=== PATIENT | male | born 2000 | race Caucasian/White ===

== ENCOUNTER 2021-08-12 07:56 | Day surgery (SDC) | payer OTHER ==
[~2021-08-12] VITALS: Ht 175.3 cm; Wt 66.0 kg
--- NOTE | 2021-08-12 07:55 | NUR ---
PATIENT TO ROOMAMBULATORY WITH STEADY GAIT WITH ANR STAFF. PATIENT IS ALERT AND ORIENTED X3. ADMISSION ASSESSMENT COMPLETED AT THIS TIME. IV ESTABLISHED. LABS OBTAINED AND SENT FOR REFERENCE. ORIENTED PATIENT TO ROOM AND UNIT. CALL LIGHT IN REACH. WILL CONTINUE TO MONITOR.
[2021-08-12 08:00] VITALS: BP 127/79
[2021-08-12 09:34] LABS: HEMATOCRIT 42.2 % (39.0-50.0); HEMOGLOBIN 14.4 g/dl (14.0-18.0); IMMATURE GRANULOCYTES 0.1 % (0.0-5.0); MEAN CELL VOLUME 84.7 fL CALC (80.0-100.0); MEAN CORPUSCULAR HGB 28.9 pG CALC (26.0-32.0); MEAN CORPUSCULAR HGB CONC 34.1 g/dL CAL (32.0-36.0); NEUT# 3.7 thou/uL (1.82-7.42); RED BLOOD COUNT 4.98 mill/uL (4.70-6.10); RED CELL DISTRI WIDTH 12.3 % (11.5-15.5)
[2021-08-12 09:50] LABS: ALBUMIN 4.4 g/dL (3.2-5.0); ALKALINE PHOSPHATASE 99 u/l (38-126); ANION GAP 15 (6-22 (CALC)); BILIRUBIN, TOTAL 0.7 mg/dL (0.0-1.4); BUN 8 mg/dL (9-20); BUN/CREATININE RATIO 12 (12-20 (CALC)); CARBON DIOXIDE 28 mmol/l (22-30); CHLORIDE 100 mmol/l (95-108); CREATININE 0.7 mg/dL (0.7-1.3); GFR > 60 ML/MIN (>=60 (CALC)); GFR FOR AFR.AMER. > 60 ML/MIN (>=60 (CALC)); SGOT/AST 28 u/l (17-59); SODIUM 139 mmol/l (137-146); TOTAL PROTEIN 8.3 g/dL (6.3-8.2)
--- NOTE | 2021-08-12 10:18 | NUR ---
DR VAZQUEZ AT BEDSIDE AT THIS TIME.
[2021-08-12 10:57] VITALS: BP 97/71
--- NOTE | 2021-08-12 11:30 | NUR ---
patient to anr procedure via bed at this time.
[2021-08-12] MEDS ORDERED: KLONOPIN0.5 MG PO (13:52)
[2021-08-12] MEDS ORDERED: NALTREXONE50 MG PO (13:52)
[2021-08-12] MEDS ORDERED: CLONIDINE0.1 MG PO (13:52)
--- NOTE | 2021-08-12 17:05 | NUR ---
PT ARRIVED TO THE FLOOR AT THIS TIME WITH THE ASSISTANCE OF TWP PERSON STAFF FROM PROCEDURE ROOM. VS OBTAINED AND ARE STABLE. BED ALARM APPLIED, PT REMAINS DROWSY FROM PROCEDURE. BEAR HUGGER APPLIED, PT STATES "OH SHIT THATS' COLD." PT RE-ASSURED THAT WARM AIR WILL FOLLOW. IV FLUIDS INFUSING THRU PATENT IV SITE OF LH. PT ABLE TO COMMUNICATE SMALL ITEMS APPROPRIATELY. WILL CONTINUE TO MONITOR.
[2021-08-12 17:22] VITALS: BP 107/68
--- NOTE | 2021-08-12 20:21 | NUR ---
ASSESSMENT COMPLETED, SEE DOCUMENTATION. PT C/O OF RESTLESSNESS, ANXIETY, GOOSEBUMPS, AND SWEATING. MEDICATIONED WITH 2MG OF ATIVAN. PT TOLERATED WELL. WILL CONTINUE TO MONITOR
[2021-08-12 23:07] VITALS: BP 137/67
--- NOTE | 2021-08-13 00:01 | NUR ---
PT RESTING QUIETLY IN BED. ABLE TO UTILIZE THE URINAL WITHOUT ASSISTANCE. BM APPROXIMATLY 2 HOURS AGO. PT HAS BEEN ABLE TO GO TO THE BATHROOM WITH MINIMAL ASSISTANCE. PT TAKING PO FLUIDS, NO C/O OF NAUSEA OR VOMMITING. SAFETY PRECAUTIONS REMAIN IN PLCE. BEAR HUGGER APPLID OVER PT DURING DAY, PT INDICATE HE WOULD LIKE TO KEEP BEAR HUGGER IN PLACE FOR THE DURATION OF STAY. WILL CONTINUE TO MONITOR
--- NOTE | 2021-08-13 02:18 | NUR ---
pt requested juice, apple juice provided with a small cup of ice. advised pt on the importance of sipping fluids and not overdoing it to decrease risk for nausea/vommiting. will monitor
--- NOTE | 2021-08-13 03:19 | NUR ---
PT AWAKE AT THIS TIME, REPORTING DIFFICULTY SLEEPING, NO S/S OF RESTLESSNESS/ANXIETY/WITHDRAWL SYMPTOMS. PT REQUESTED SOMETHING TO EAT, PROVIDED PT WITH JELLO. TAOLERATED WELL. PT HAS BEEN TAKING IN PO FLUIDS THROUGHOUT THE SHIFT, NO NAUSEA/VOMMITTING REPORTED. PT IS TOLERATING WELL. SAFETY PRECAUTIONS REMAIN IN PLACE, WILL MONITOR
[2021-08-13 03:45] VITALS: BP 111/57
--- NOTE | 2021-08-13 04:00 | NUR ---
PT RESTING QUITLY AT THIS TIME, NO COMPLAINTS VOICED, NO S/S OF DISTRESS NOTED. MINIMAL S/S OF WITHDRAWL NOTED, GOOSEFLESH, MINIMAL RESTLESSNESS. PT DOES C/O INSOMNIA, PT DENIES THAT THE INSOMINA IS MAKING HIM ANXIOUS. UPON OBSERVATION NOTED THAT PT IS RESTING AND THE REAWAKENING TO MINimal NOISE. PT CONTINUES TO TOLERATE FLUIDS BY MOUTH, ALL ORDERED MEDS ADMINSTERED. SAFETY PRECAUTIONS REMAIN IN PLACE, CALL LIGHT REMAIN WITHIN REACH
[2021-08-13 06:10] LABS: HEMATOCRIT 43.6 % (39.0-50.0); HEMOGLOBIN 13.8 g/dl (14.0-18.0); MEAN CELL VOLUME 91.8 fL CALC (80.0-100.0); MEAN CORPUSCULAR HGB 29.1 pG CALC (26.0-32.0); MEAN CORPUSCULAR HGB CONC 31.7 g/dL CAL (32.0-36.0); NEUT# 5.36 thou/uL (1.82-7.42); RED BLOOD COUNT 4.75 mill/uL (4.70-6.10); RED CELL DISTRI WIDTH 12.5 % (11.5-15.5)
[2021-08-13 06:19] LABS: ALBUMIN 3.9 g/dL (3.2-5.0); ALKALINE PHOSPHATASE 87 u/l (38-126); ANION GAP 15 (6-22 (CALC)); BILIRUBIN, TOTAL 0.8 mg/dL (0.0-1.4); BUN 10 mg/dL (9-20); BUN/CREATININE RATIO 14 (12-20 (CALC)); CARBON DIOXIDE 22 mmol/l (22-30); CHLORIDE 108 mmol/l (95-108); CREATININE 0.7 mg/dL (0.7-1.3); GFR > 60 ML/MIN (>=60 (CALC)); GFR FOR AFR.AMER. > 60 ML/MIN (>=60 (CALC)); MAGNESIUM 2.3 mg/dL (1.6-2.3); SGOT/AST 19 u/l (17-59); SODIUM 141 mmol/l (137-146); TOTAL PROTEIN 7.4 g/dL (6.3-8.2)
[2021-08-13 07:43] VITALS: BP 91/58
[2021-08-13 07:56] VITALS: BP 91/58
--- NOTE | 2021-08-13 08:00 | NUR ---
PT AWAKE ALERT AND APPROPRIATE. VSS TOLERATING BREAKFAST WITH NO C/O N/V
== END 2021-08-13 12:03 | disposition home or self-care (01) | DRG 897 ==
LOC: ANR 07:56 → MS2 08:09 → ANR 11:04
PROVIDERS: ATTEND Anesthesiology
DX: F11.20 Opioid dependence, uncomplicated (principal)
CPT/HCPCS: J2060; J2354; J3475